=== PATIENT | male | born 1960 | race Caucasian/White ===

== ENCOUNTER 2017-05-06 09:55 | Outpatient (CLI) | payer MEDICARE, MEDICAID ==
--- NOTE | 2017-05-06 15:41 | NM ---
NUCLEAR MEDICINE [facility]Tscan OF BRAIN: Date: 05/06/17 HISTORY: 56-year-old male with gait difficulty R26.9. TECHNIQUE: 130 mg of potassium iodide (KI) administered PO 1 hour prior to Ioflupane injection. 4.6 mCi of I-123 Ioflupane injected IV. 3 hour delayed SPECT axial images of the brain performed. FINDINGS: There is bilaterally symmetrical uptake in the corpus striatum involving putamen and caudate nucleus bilaterally. There is severe ballooning of the lateral ventricles and third ventricle. The fourth ventricle is nor mal in size. IMPRESSION: 1. Negative for Parkinson's disease. 2. Severe hydrocephalus involving the lateral and third ventricles. POS: DEAN
== END 2017-05-06 09:56 | disposition home or self-care (01) ==
LOC: NM 09:55
PROVIDERS: ATTEND Psychiatry & Neurology Neurology
DX: R26.9 Unspecified abnormalities of gait and mobility (principal); G91.9 Hydrocephalus, unspecified
CPT/HCPCS: 78607; A9584

== ENCOUNTER 2021-06-09 14:25 | Outpatient (CLI) | payer MEDICARE, MEDICAID | END 2021-06-09 14:26 | disposition home or self-care (01) | LOC: EEG 14:25 | PROVIDERS: ATTEND Psychiatry & Neurology Neurology | DX: G91.2 (Idiopathic) normal pressure hydrocephalus (principal) | CPT/HCPCS: 95816 ==